=== PATIENT | male | born 1955 | race Caucasian/White ===

== ENCOUNTER → 2017-07-12 | Outpatient (REF) | payer OTHER ==
[2017-07-12 21:33] LABS: MICROSCOPIC INDICATED? MAN NO (NO)
== END ==
LOC: M LAB REF 16:26
PROVIDERS: ATTEND Physician Assistant
DX: R35.0 Frequency of micturition (principal)

== ENCOUNTER → 2021-04-23 | Outpatient (CLI) | payer MEDICARE, OTHER | LOC: M LAB 17:26 | PROVIDERS: ATTEND Physician Assistant | DX: M31.6 Other giant cell arteritis (principal) ==